=== PATIENT | male | born 1980 | race Caucasian/White ===

== ENCOUNTER 2024-01-16 13:45 | Emergency (ER) | payer OTHER ==
[~2024-01-16] VITALS: Ht 177.8 cm; Wt 113.4 kg
[~2024-01-16 13:45] MED LIST: LISINOPRIL10 MG PO; PREDNICOT20 MG PO; TESSALON PERLE100 M1 PO; TRAZODO50 MG PO; WELLBUTRIN SR150 MG PO; ZITHROMAX Z PA250 MG PO
[2024-01-16] MEDS ORDERED: FLUOXETINE HYDR20 M1 PO (13:55)
[2024-01-16] MEDS ORDERED: AMITRIPTYLINE25 MG PO (13:56)
[2024-01-16] MEDS ORDERED: AMLODIPINE BESY10 MG PO (13:56)
[2024-01-16] MEDS ORDERED: PROZAC40 M1 PO (14:04)
== END 2024-01-16 14:08 | disposition home or self-care (01) ==
LOC: ED 13:45
DX: Z76.0 Encounter for issue of repeat prescription (principal); I10 Essential (primary) hypertension; F41.9 Anxiety disorder, unspecified; F32.A Depression, unspecified; Z87.442 Personal history of urinary calculi; Z98.890 Other specified postprocedural states